=== PATIENT | male | born 1960 | race Caucasian/White ===

== ENCOUNTER 2018-11-25 15:06 | Emergency (ER) | payer MEDICAID ==
[2018-11-25] MEDS: TETRACAINE 0.5% 4 ML OPH RIGHT EYE (16:50)
== END 2018-11-25 17:32 | disposition home or self-care (01) ==
LOC: FTE 15:06
DX: T15.01XA Foreign body in cornea, right eye, initial encounter (principal); X58.XXXA Exposure to other specified factors, initial encounter; Y92.89 Other specified places as the place of occurrence of the external cause
CPT/HCPCS: 65222; 99283-25